=== PATIENT | female | born 1945 | race Caucasian/White ===

== ENCOUNTER 2016-07-11 12:46 | Emergency (ER) | payer MEDICARE, BC ==
[2016-07-11] MEDS ORDERED: ACETAMINOPHEN 325 MG TAB ONE (14:32)
== END 2016-07-11 15:28 | disposition home or self-care (01) ==
LOC: ER 12:46
DX: M16.11 Unilateral primary osteoarthritis, right hip (principal); M54.31 Sciatica, right side; Z86.73 Personal history of transient ischemic attack (TIA), and cerebral infarction without residual deficits; Z79.82 Long term (current) use of aspirin; Z79.01 Long term (current) use of anticoagulants; Z79.899 Other long term (current) drug therapy
CPT/HCPCS: 72100